=== PATIENT | male | born 1980 | race Caucasian/White ===

== ENCOUNTER 2017-02-03 19:43 | Emergency (ER) | payer OTHER ==
[2017-02-03] MEDS ORDERED: KEFLEX PO (19:56)
== END 2017-02-03 21:15 | disposition home or self-care (01) ==
LOC: SED 19:43
DX: T63.461A Toxic effect of venom of wasps, accidental (unintentional), initial encounter (principal); L29.9 Pruritus, unspecified; Z98.890 Other specified postprocedural states
CPT/HCPCS: 99282